=== PATIENT | female | born 1995 | race Native Hawaiian/Other Pacific Islander ===

== ENCOUNTER 2018-01-09 11:28 | Day surgery (SDC) | payer SELFPAY ==
[~2018-01-09 11:28] MED LIST: IOPIDINE OU ONE; MYDRIACYL OU ONE; NEOFRIN OU ONE
[2018-01-09 13:26] VITALS: BP 100/57
== END 2018-01-09 11:29 | disposition home or self-care (01) ==
LOC: OR 11:28
PROVIDERS: ATTEND Ophthalmology
DX: H26.493 Other secondary cataract, bilateral (principal)